=== PATIENT | female | born 1990 | race Two or more races ===

== ENCOUNTER 2017-01-30 16:04 | Emergency (ER) | payer OTHER ==
[~2017-01-30] VITALS: Ht 157.5 cm; Wt 68.2 kg
[2017-01-30 16:18] VITALS: BP 111/74; PULSE 70; RESP 16; O2SAT 100
--- NOTE | 2017-01-30 17:23 | ED.REPORT ---
HPI-Back Pain Under 42 Date of Service Jan 30, 2017 ED Provider: Arlet Neri History of Present Illness: need zofran tried reglan, phenergan b-12, benadryl, still with vomiting. appointment [place] [facility] [place] 02[place]2017 at 2 pm have not eaten or drank since 4 days. [place] night also. given benadryl. not working Nursing Notes Stated Complaint: PAIN IN BACK, RIBS & BELLY, NAUSEA Chief Complaint: General Complaint Nursing Notes Reviewed: Yes Allergies: Coded Allergies: [place] (Verified Allergy, Severe, Anaphylaxis, 01/30/17) General Time Seen by MD: 17:11 Chief Complaint Other (nausea) Hx Obtained From: Patient Sudden in Onset?: No Past Medical History Past Medical History Denies: Asthma, Diabetes mellitus Past Surgical History nose and dental surgery Reports: (times 2, ) Smoking History Current Every Day Smoker (stopped for ) Social History Alcohol Use: Denies alcohol use Drug Use: Denies drug use Occupation single, no work or school 01/30/2017 Review of Systems Basic Review of Systems Eyes: Vision NL, No discharge Skin: No bruising, No rash, No itch Psychiatric: Normal thought content Physical Exam Initial Vital Signs Vital Signs (First) Date Time Temp Pulse Resp B/P Pulse Ox O2 Delivery O2 Flow Rate FiO2 01/30/17 16:18 36.9 70 16 111/74 100 Room Air Initial VS: Reviewed, Vital signs normal Head / Eyes: Atraumatic, Normocephalic, PERRL ENT: Mucous membranes moist, Conjunctiva normal, No scleral icterus Neck: Supple, Non-tender, Full range of motion Respiratory: Breath sounds normal, Clear to auscultation, No respiratory distress Cardiovascular: Heart sounds normal, Intact distal pulses Abdomen / GI: Soft, Non-tender, No guarding, No rebound, No distention Lymphatic: No lymphadenopathy Extremities: Vascular intact, Neuro intact, No swelling, No tenderness Skin: Warm, Dry, No cyanosis Psychiatric: Mood/affect normal, Behavior normal, Normal thought content General/Constitutional: Awake, Alert, No acute distress, Well appearing, Well developed, Well hydrated, Well nourished, Cooperative, Not toxic appearing Back: Atraumatic, Inspection NL, Full range of motion, Painless range of motion , Non-tender Neurologic: Oriented X3, Speech NL, No motor deficits, No sensory deficits, CN II - XII intact, Reflexes equal bilat, Cerebellar NL, Memory NL Respiratory / Chest: Atraumatic, Breath sounds NL, Breath sounds = bilat, No respiratory distress Cardiovascular: Heart rate NL, Regular rhythm, Heart sounds NL, No gallop Abdomen: Atraumatic, Soft, Non-tender, McBurney's non-tender Interpretation & Diagnostics Lab Results Interpretation Test 01/30/17 18:13 01/30/17 18:19 Hold Urine Received (Received) Urine Color Yellow (YELLOW) Urine Appearance Hazy (CLEAR,HAZY) Urine pH 7.0 (5.0-8.0) Urine Specific Ivel 1.020 (1.003-1.035) Urine Protein Tracemg/dL (NEG,TRACE) Urine Glucose (UA) Negativemg/dL (NEGATIVE) Urine Ketones Tracemg/dL (NEGATIVE) Urine Occult Blood Negative (NEGATIVE) Urine Nitrite Negative (NEGATIVE) Urine Bilirubin Negative (NEGATIVE) Urine Urobilinogen Normalmg/dL (NORMAL) Urine Leukocyte Esterase Negative (NEGATIVE) Urine RBC 0-2/hpf (0-2) Urine WBC 0-5/hpf (0-5) Urine Epithelial Cells Moderate/hpf (NONE-MOD) Urine Crystals None seen (NONE SEEN) Urine Bacteria Few/hpf (NONE-FEW) Urine Hyaline Casts None/lpf (NONE) Urine Granular Casts None seen (NONE SEEN) Urine Waxy Casts None seen (NONE SEEN) Urine Red Blood Cell Casts None seen (NONE SEEN) Urine White Blood Cell Casts None seen (NONE SEEN) Urine Mucus Present (None Seen) Urine Trichomonas None seen (NONE SEEN) Urine Yeast None (NONE SEEN) Urinalysis Comment None Urine Culture Reflexed Not indicated Lab Results Interpretation: urine negative for infection, u tox positive for THC, u dip shows trace ketones Re-Eval/Medical Decision Med Decision/Clinical Course Discussed with DR. Douglas, public transportation inspector OB at [place] RE: patient requesting zofran and vicodin. No to both medications. Patient with no vomiting in the department. Offered patient compaizaine, patient stating she will not take it unless she gets an IV. At [facility] last evening she pulled her IV after it was just started. No sign of significant vomiting or urine infection Discharge & Departure Impression: Primary Impression: Vomiting Vomiting type: unspecified Additional Impressions: Chronic pain Chronic pain type: other chronic pain Qualified Code: G89.29 - Other chronic pain Disposition: Home Patient Instructions: Acute Nausea and Vomiting (ED), (ED), Diet (GEN) Additional Instructions: The urine does not show any sign of infection. I spoke with Dr. Douglas about your request for zofran. She states that it is not on the approved list of medications for first trimester nausea medication. Her suggestion was compazaine. This has been offered to you but you are refusing to take it. You are being provided a prescription for compazaine. Suggestion is small frequent meals. Avoid high fat meals. Please keep the appointment with [facility] Dr. Marley. Referrals: NOPCP (PCP) EDSupervising Provider for APC: Melchor Vegas MD, Sue ARNP Jan 30, 2017 17:23
[2017-01-30 18:35] LABS: APPEARANCE,URINE HAZY (CLEAR,HAZY); COLOR,URINE YELLOW (YELLOW); OCCULT BLOOD,URINE NEGATIVE (NEGATIVE); UROBILINOGEN,URINE NORMAL (NORMAL)
[2017-01-30 19:20] VITALS: BP 111/74; PULSE 70; RESP 16; O2SAT 100
== END 2017-01-30 19:21 | disposition home or self-care (01) ==
LOC: SED 16:04
DX: O21.9 Vomiting of pregnancy, unspecified (principal); G89.29 Other chronic pain; Z3A.11 11 weeks gestation of pregnancy; Z72.0 Tobacco use; Z91.010 Allergy to peanuts